=== PATIENT | female | born 1950 | race Caucasian/White ===

== ENCOUNTER 2017-07-24 00:41 | Emergency (ER) | payer OTHER ==
[2017-07-24 00:47] VITALS: BP 156/78; BMI 24.1
[2017-07-24 01:33] LABS: BILIRUBIN,URINE NEGATIVE (NEGATIVE); BLOOD/HEMOGLOBIN,URINE 5+ (NEGATIVE); GLUCOSE, URINE NEGATIVE (NEGATIVE); KETONES,URINE NEGATIVE (NEGATIVE); LEUKOCYTE ESTERASE ,URINE 3+ (NEGATIVE); NITRITES,URINE NEGATIVE (NEGATIVE); PH,URINE 6.5 (5.0 - 8.0); PROTEIN,URINE 3+ (NEGATIVE); UROBILINOGEN,URINE NORMAL (NORMAL)
--- NOTE | 2017-07-24 01:35 | DR.GENAD ---
HPI - PCP Primary Care Physician: shazia - HPI Comment HPI Comment: Dysuria - Complaint/Symptoms Chief Complaint:: c/o burning on urination; urinary frequency; dysuria; urgency ; hematuria. Onset 8pm tonight. 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 - Family History History of Family Medical Conditions: Yes Family Medical History: Diabetes Mellitus, [place], Coronary Artery Disease - Social History Does patient currently use any type of tobacco product: No Have you used tobacco products in the last 12 months: No Type of Tobacco Use: None Alcohol Use: None Do you use any recreational Drugs:: No Lives With: Family Lives Where: Home - infectious screening In the last 2 months have you had wt loss of >10#?: NO Have you had fever, night sweats or hemotysis?: No Have you traveled outside the country in the last 6 months?: No Isolation: Standard ROS - Review of Systems Constitutional: No Symptoms Reported Eyes: No Symptoms Reported ENTM: No Symptoms Reported Respiratoy: No Symptoms Reported Cardiovascular: No Symptoms Reported Gastrointestinal/Abdominal: No Symptoms Reported Genitourinary: Dysuria, Frequency, Other (Urgency) Neurological: No Symptoms Reported Musculoskeletal: No Symptoms Reported Integumentary: No Symptoms Reported Hematologic/Lymphatic: No Symptoms Reported Endocrine: No Symptoms Reported Psychiatric: No Symptoms Reported All Other Systems: Reviewed and Negative PE - Vital Signs Vitals: Temperature 98.1 F Pulse Rate 80 Respiratory Rate 20 Blood Pressure [Right Arm] 141/66 Blood Pressure 156/78 O2 Sat by Pulse Oximetry 98 - General Limitations: No Limitations General Appearance: Alert, In No Apparent Distress - Head Head Exam: Normal Inspection - Eyes Eye exam: Normal Appearance - ENT ENT Exam: Normal Exam External Ear Exam: Normal External Inspection TM/Canal Exam: Bilateral Normal Nose Exam: Normal Nose Exam Mouth Exam: Normal Inspection Throat Exam: Normal Inspection - Neck Neck Exam: Normal Inspection - Chest Chest Inspection: Normal Inspection - Respiratory Respiratory Exam: Normal Lung Sounds Bilat Respiratory Exam: Bilateral Clear to Auscultation - Cardiovascular Cardiovascular Exam: Regular Rate, Normal Rhythm - Abdominal Exam Abdominal Exam: Normal Inspection, Normal Bowel Sounds, Soft - Extremities Extremities Exam: Normal Inspection - Back Back Exam: Normal Inspection - Neurologic Neurological Exam: Alert, Oriented X3, CN II-XII Intact - Psychiatric Psychiatric Exam: Normal Affect, Normal Mood - Skin Skin Exam: Warm, Dry, Intact, Normal Color Course - Reevaluation 1st: Unchanged - Education/Counseling Education/Counseling: Patient, Family Educated On: Treatment, Diagnosis, Needs for Follow Up ROR - Labs Reviewed Laboratory: Specimen Type Clean catch urine 07/24/17 01:21 Urine Color Yellow (YELLOW) 07/24/17 01:21 Urine Appearance Hazy (CLEAR) 07/24/17 01:21 Urine pH 6.5 (5.0 - 8.0) 07/24/17 01:21 Ur Specific Aurora 1.010 (1.000-1.030) 07/24/17 01:21 Urine Protein 3+ (NEGATIVE) 07/24/17 01:21 Urine Glucose (UA) Negative (NEGATIVE) 07/24/17 01:21 Urine Ketones Negative (NEGATIVE) 07/24/17 01:21 Urine Occult Blood 5+ (NEGATIVE) 07/24/17 01:21 Urine Nitrite Negative (NEGATIVE) 07/24/17 01:21 Urine Bilirubin Negative (NEGATIVE) 07/24/17 01:21 Urine Urobilinogen Normal (NORMAL) 07/24/17 01:21 Ur Leukocyte Esterase 3+ (NEGATIVE) 07/24/17 01:21 Urine RBC 60-80 /HPF (NEGATIVE) 07/24/17 01:21 Urine WBC 20-30 /HPF (NEGATIVE) 07/24/17 01:21 Ur Squamous Epith Cells Few /HPF (NEGATIVE) 07/24/17 01:21 Urine Bacteria 1+ /HPF (NEGATIVE) 07/24/17 01:21 Ur Culture Indicated? Yes/culture set up 07/24/17 01:21 - Diagnosis Discharge Problem: Lower urinary tract infection - Discharge Plan Disposition: 01 HOME, SELF-CARE Condition: Stable - Follow ups/Referrals Follow ups/Referrals: Nate Muñiz [Primary Care Provider] - 3 days - Instructions
[2017-07-24 01:40] LABS: APPEARANCE,URINE HAZY (CLEAR); COLOR,URINE YELLOW (YELLOW); RBC,URINE 60-80 /HPF (NEGATIVE)
[2017-07-24 01:41] LABS: BACTERIA,URINE 1+ /HPF (NEGATIVE); SQUAMOUS EPITHELIAL CELL,UR FEW /HPF (NEGATIVE)
[2017-07-24] MEDS ORDERED: PYRIDIUM PO ONE (01:53)
[2017-07-24] MEDS ORDERED: LEVAQUIN TAB 500 MG PO ONE (01:55)
[2017-07-24] MEDS ORDERED: PYRIDIUM PO SCH (02:00)
== END 2017-07-24 02:38 | disposition home or self-care (01) ==
LOC: ER 00:41
DX: N39.0 Urinary tract infection, site not specified (principal)
CPT/HCPCS: 81001; 87086; 99282

== ENCOUNTER 2022-02-09 08:47 | Inpatient (IN) ==
[2022-02-09 08:57] VITALS: BMI 22.4
--- NOTE | 2022-02-09 09:27 | DR.HTN ---
HPI Time Seen Time Seen by Provider: 02/09/22 09:26 Primary Care Physician Primary Care Physician: PINKY HPI Comment HPI Comment: PATIENT IS 71YR OLD FEMALE WITH HISTORY OF HYPERTENSION AND DYSLIPIDEMIA IN ER WITH ELEVATED BP AND HEADACHE. SHE WENT FOR ECHOCARDIOGRAM TODAY AND BP WAS NOTED TO BE ELEVATED AND CAME TO ER. RECENTLY DECREASE MEDICATION FOR BP. SHE IS NAUSEATED AND FELT NAUSEA SINCE LAST WEEK. NO DIZZINESSOR, BLURRED VISSION OR DYSURIA OR TRAUMA. HACING SUBSTERNAL CHEST PAIN, MILD ACHING. HEADACHE IS THROBBING, DIFFUSE AND CURRENTLY 5/10. IT IS ASSOCIATED WITH NAUSEA AND TYLENOL IS NOT HELPING. SAW PCP ONE WEEK AGO FOR SAME. AT THAT TIME MEDICATION WAS DECREASE PER PATIENT. Complaints Chief Complaint Doctors Comments: ELEVATED BP AND HEADACHE. HIGH BP NOTED WHILE PATIENT WAS IN ECHO LAB. Chief Complaint:: PT STATES HER BLOOD PRESSURE IS HIGH TODAY. HAD ECHO DONE THIS MORNING AND BP WAS HIGH IN RADIOLOGY DEPT. CAME TO ER. PT STATES SHE IS ALSO NAUSEATED "ALL WEEK LAST WEEK", ALSO C/O HEADACHE Self Treatment fo Chief Complaint: SAW DR. VANCE LAST FOR C/O N/HTN, STATES SHE WAS TOLD TO HALF HER BP MED D/T PERIODS OF BP BEING TOO LOW. TYLENOL NOT EFFECTIVE FOR RELIEF OF HEADACHE. COVID-19 Coronavirus risk:travel/contact w/high risk person: No Has patient experienced Coronavirus symptoms: No Reviewed Nurses Notes Reviewed: Yes Source History Provided: Patient Mode of Arrival Mode of Arrival: Ambulatory Timing Onset of Chief Complaint: 02/09/22 Severity Severity: Moderate Context Circumstances: Spontaneous Onset History of: Hypertension Treatment of HTN Prior to Arrival: Taking meds as prescribed Associated Signs and Symptoms HTN Associated Signs and Symptoms: Headache and N/V Other History Other History: HTN, DYSLIPIDEMIA. 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 Family History History of Family Medical Conditions: Yes Family Medical History: Diabetes Mellitus, [place] and Coronary Artery Disease Social History Does any household member use tobacco: No Alcohol Use: None Do you use any recreational Drugs:: No Lives With: Alone Lives Where: Home Travel Risk Coronavirus risk:travel/contact w/high risk person: No Has patient experienced Coronavirus symptoms: No Infectious screening In the last 2 months have you had wt loss of >10#?: NO Have you had fever, night sweats or hemotysis?: No Have you traveled outside the country in the last 6 months?: No Isolation: Standard ROS Review of Systems Constitutional: No Symptoms Reported and See HPI; negative Fever, Weakness and Fatigue Eyes: No Symptoms Reported and See HPI; negative Blurred Vision ENTM: No Symptoms Reported and See HPI; negative Nose Discharge and Nose Congestion Respiratoy: No Symptoms Reported and See HPI; negative Moist Cough, Short of Breath and Wheezing Cardiovascular: See HPI and Chest Pain Gastrointestinal/Abdominal: See HPI, Nausea and Vomiting; negative Abdominal Pa in and Diarrhea Genitourinary: No Symptoms Reported and See HPI; negative Dysuria Neurological: See HPI and Headache; negative Weakness and Dizziness Musculoskeletal: No Symptoms Reported and See HPI; negative Muscle Pain Integumentary: No Symptoms Reported and See HPI; negative Rash and Juandice Hematologic/Lymphatic: See HPI and Easy Bruising; negative Swollen Glands Endocrine: No Symptoms Reported and See HPI; negative Increased Thirst and Increased Urine Psychiatric: No Symptoms Reported and See HPI All Other Systems: Reviewed and Negative PE Vital Signs Vitals: Temperature 97.8 F Pulse Rate 73 Respiratory Rate 15 Blood Pressure [Right Arm] 150/70 Blood Pressure 158/76 O2 Sat by Pulse Oximetry 98 General Limitations: No Limitations General Appearance: Alert and In No Apparent Distress Head Head Exam: Normal Inspection and Atraumatic Eyes Eye exam: Normal Appearance and PERRL; negative Scleral Icterus and Conjunctival Injection Pupils: Regular, Round: Bilateral and Reactive: Bilateral Sclera/Conjunctival: Normal Inspection: Bilateral ENT ENT Exam: Normal Exam, Normal Oropharynx, Normal External Ear Exam and TM's Normal Bilaterally Neck Neck Exam: Normal Inspection and Trachea Midline; negative Tenderness Chest Chest Inspection: Normal Inspection and Symmetric Chest Wall Rise; negative Tenderness Respiratory Respiratory Exam: Normal Lung Sounds Bilat; negative Accessory Muscle Use, Chest Wall Tenderness and Respiratory Distress Respiratory Exam: Bilateral: Clear to Auscultation Cardiovascular Cardiovascular Exam: Regular Rate, Normal Rhythm and Normal Heart Sounds; negative Systolic Murmur and Diastolic Murmur Abdominal Exam Abdominal Exam: Normal Inspection, Normal Bowel Sounds and Soft; negative Tenderness Extremities Extremities Exam: Normal Inspection and Normal Capillary Refill; negative Tenderness Back Back Exam: Normal Inspection; negative (R) CVA Tenderness and (L) CVA Tenderness Neurologic Neurological Exam: Alert and Oriented X3; negative Motor Sensory Deficit Patient Oriented To: Person, Place and Time Speech: Fluid Speech Cranial Nerve Exam: EOM Function (II, III, IV, ): Normal, Facial Sensation (V): Normal, Facial Palsy (VII): Normal, Gag reflex (XI): Normal and Tongue Deviation: Normal Motor Strength - LUE: 5/5 Motor Strength - RUE: 5/5 Motor Strength - LLE: 5/5 Motor Strength - RLE: 5/5 Upper Motor Neuron Exam: Babinski Sign: Normal Psychiatric Psychiatric Exam: Normal Affect and Normal Mood Skin Skin Exam: Warm, Dry, Intact and Normal Color MDM Additional Information Obtained Additional Information Obtained From: Old Records Differential Diagnosis Differential Diagnosis: Hyertension, essential and Hypertensive emergency Differential Diagnosis Comment: HEADACHE. COURSE Treatment Treatment: SEE ORDERS DONE WHILE PATIENT WWAS IN ER. Consultation Consultation Comments: DISCUSSED PATIENT WITH DR. VANCE. HE WILL BE ADMITTED TO HOSPITAL. Education/Counseling Education/Counseling: Patient Educated On: Diagnosis ROR Labs Reviewed Laboratory Results Reviewed?: Yes Result Diagrams: 02/16/22 04:10 02/16/22 04:10 Laboratory: WBC 12.6 X10^3/uL (3.6-10.0) H 02/09/22 09:46 RBC 4.54 X10^6/uL (3.5-5.4) 02/09/22 09:46 Hgb 12.0 g/dL (12.0-16.0) 02/09/22 09:46 Hct 34.8 % (36.0-47.0) L 02/09/22 09:46 MCV 76.6 fL (80.0-100.0) L 02/09/22 09:46 MCH 26.4 pg (27.0-34.0) L 02/09/22 09:46 MCHC 34.5 g/dL (33.0-35.0) 02/09/22 09:46 RDW 14.3 % (11.6-16.5) 02/09/22 09:46 Plt Count 285 X10^3/uL (150.0-450.0) 02/09/22 09:46 MPV 7.1 fL (7.4-11.0) L 02/09/22 09:46 Neut % (Auto) 87.1 % (42.0-75.0) H 02/09/22 09:46 Lymph % (Auto) 5.8 % (21.0-51.0) L 02/09/22 09:46 Robeson % (Auto) 6.7 % (0.0-13.0) 02/09/22 09:46 Eos % (Auto) 0.2 % (0.9-2.9) L 02/09/22 09:46 Baso % (Auto) 0.2 % (0.2-1.0) 02/09/22 09:46 Neut # (Auto) 11.0 x10^3/uL (2.2-4.8) H 02/09/22 09:46 Lymph # (Auto) 0.7 X10^3/uL (1.3-2.9) L 02/09/22 09:46 Robeson # (Auto) 0.8 x10^3/uL (0.3-0.8) 02/09/22 09:46 Eos # (Auto) 0.0 x10^3/uL (0.0-0.2) 02/09/22 09:46 Baso # (Auto) 0.0 X10^3/uL (0.0-0.1) 02/09/22 09:46 Absolute Nucleated RBC 0.1 /100WBC 02/09/22 09:46 Sodium 114 mmol/L (136-145) L* 02/09/22 09:46 Corrected Sodium 114 mmol/L (136-145) L 02/09/22 09:46 Potassium 4.4 mmol/L (3.5-5.1) 02/09/22 09:46 Chloride 82 mmol/L (98-107) L 02/09/22 09:46 Carbon Dioxide 23.8 mmol/L (21-32) 02/09/22 09:46 BUN 6 mg/dL (7-18) L 02/09/22 09:46 Creatinine 0.86 mg/dL (0.55-1.02) 02/09/22 09:46 Est GFR (MDRD) Af Amer > 60 (>60) 02/09/22 09:46 Est GFR (MDRD) Non-Af > 60 (>60) 02/09/22 09:46 Glucose 115 mg/dL (65-99) H 02/09/22 09:46 Calcium 8.8 mg/dL (8.5-10.1) 02/09/22 09:46 Corrected Calcium 9.4 mg/dL (8.5-10.1) 02/09/22 09:46 Total Bilirubin 0.70 mg/dL (0.2-1.0) 02/09/22 09:46 AST 13 Units/L (15-37) L 02/09/22 09:46 ALT 17 Units/L (12-78) 02/09/22 09:46 Alkaline Phosphatase 109 Units/L (46-116) 02/09/22 09:46 Creatine Kinase 48 Units/L (26-192) 02/09/22 09:46 CK-MB (CK-2) 1.1 ng/mL (0-4.0) 02/09/22 09:46 CK/CKMB % Calc 2.3 % (<4) 02/09/22 09:46 Troponin I High Sens 9.3 ng/L (4.0-60.0) 02/09/22 09:46 Total Protein 6.2 g/dL (6.4-8.2) L 02/09/22 09:46 Albumin 3.2 g/dL (3.4-5.0) L 02/09/22 09:46 Globulin 3.0 g/dL (2.5-4.5) 02/09/22 09:46 Albumin/Globulin Ratio 1.1 Ratio (1.1-2.1) 02/09/22 09:46 SARS-CoV-2 (PCR) Negative (NEGATIVE) 02/09/22 09:46 Influenza Type A (PCR) Negative (NEGATIVE) 02/09/22 09:46 Influenza Type B (PCR) Negative (NEGATIVE) 02/09/22 09:46 RSV (PCR) Negative (NEGATIVE) 02/09/22 09:46 Opioid Opioid Risk Tool Age (Ciro box if 16-45): No History of Preadolescent Sexual Abuse: No Total: 0 Total Score Risk Category: Low Risk Copyright: Mauricio TORRES predicting aberrant behaviors Diagnosis Discharge Problem: Hyponatremia, Generalized weakness Hypertension Qualifiers: Hypertension type: primary hypertension Qualified Code(s): I10 - Essential (primary) hypertension Headache Qualifiers: Headache type: unspecified Headache chronicity pattern: acute headache Intractability: intractable Qualified Code(s): R51.9 - Headache, unspecified Chest pain Qualifiers: Chest pain type: intercostal pain Qualified Code(s): R07.82 - Intercostal pain Instructions Instructions: Migraine Headache, Xnat-yl-Aigj How to Take Your Blood Pressure, Mbqm-sm-Wykj Urinary Tract Infection, Adult, Pgsn-my-Vcxa Hypertension, Adult, Kruc-tk-Wily Hyponatremia, Pgij-ih-Ihbp Dizziness, Fgki-gi-Enhb Forms: Excuse From Work or School Precautions for COVID19 [facility] Social Distancing
[2022-02-09 09:56] LABS: BASOPHILS % (AUTO) 0.2 % (0.2-1.0); EOSINOPHILS % (AUTO) 0.2 % (0.9-2.9); HEMATOCRIT 34.8 % (36.0-47.0); LYMPHOCYTES # (AUTO) 0.7 X10^3/uL (1.3-2.9); LYMPHOCYTES % (AUTO) 5.8 % (21.0-51.0); MEAN CORPUSCULAR HEMOGLOBIN 26.4 pg (27.0-34.0); MEAN CORPUSCULAR HGB CONC 34.5 g/dL (33.0-35.0); MEAN CORPUSCULAR VOLUME 76.6 fL (80.0-100.0); MEAN PLATELET VOLUME 7.1 fL (7.4-11.0); MONOCYTES # (AUTO) 0.8 x10^3/uL (0.3-0.8); MONOCYTES % (AUTO) 6.7 % (0.0-13.0); NEUTROPHILS % (AUTO) 87.1 % (42.0-75.0); RED BLOOD COUNT 4.54 X10^6/uL (3.5-5.4); RED CELL DISTRIBUTION WIDTH 14.3 % (11.6-16.5); WHITE BLOOD COUNT 12.6 X10^3/uL (3.6-10.0)
[2022-02-09 10:20] LABS: ALANINE AMINOTRANSFERASE 17 Units/L (12-78); ALBUMIN 3.2 g/dL (3.4-5.0); ALKALINE PHOSPHATASE 109 Units/L (46-116); ASPARTATE AMINO TRANSFERASE 13 Units/L (15-37); BLOOD UREA NITROGEN 6 mg/dL (7-18); CALCIUM 8.8 mg/dL (8.5-10.1); CARBON DIOXIDE 23.8 mmol/L (21-32); CHLORIDE 82 mmol/L (98-107); CKMB % 2.3 % (<4); COR CA(FOR HYPOALB) 9.4 mg/dL (8.5-10.1); COR NA(FOR HYPERGLY) 114 mmol/L (136-145); CREATINE KINASE 48 Units/L (26-192); CREATINE KINASE MB 1.1 ng/mL (0-4.0); CREATININE 0.86 mg/dL (0.55-1.02); TOTAL PROTEIN 6.2 g/dL (6.4-8.2); eGFR NON BLACK RACES > 60 (>60)
[2022-02-09 10:22] LABS: SODIUM 114 mmol/L (136-145)
[2022-02-09] MEDS ORDERED: NS 1,000 ML IV 1,000 ML ONE (10:27)
[2022-02-09] MEDS ORDERED: NS 1,000 ML IV 1,000 ML IV ONE (10:31)
--- NOTE | 2022-02-09 10:36 | RAD ---
HISTORYChest painSTUDYChest AP portableCOMPARISONNoneFINDINGSPatient is rotated slightly to the right. Heart size is normal. Jloie are normal. Lung ayoub are clear. No pleural effusion or pneumothorax identified. Bony thorax is unremarkable.IMPRESSIONNo significant abnormality identifiedElectronically signed by: COLEMAN LANTIGUA (February 09, 2022 10:34:41)
[2022-02-09] MEDS: NS 1,000 ML IV 1,000 ML IV SCH (12:53)
[2022-02-09 17:25] LABS: CREATINE KINASE MB 1.2 ng/mL (0-4.0)
[2022-02-09 23:00] LABS: CKMB % 2.2 % (<4)
[2022-02-10] MEDS: TYLENOL 325 MG TAB PO PRN ×2 (01:12→20:49)
[2022-02-10] MEDS: NS 1,000 ML IV 1,000 ML IV SCH ×4 (01:13→17:14)
[2022-02-10 04:19] LABS: BASOPHILS % (AUTO) 0.4 % (0.2-1.0); EOSINOPHILS % (AUTO) 0.2 % (0.9-2.9); HEMATOCRIT 33.2 % (36.0-47.0); HEMOGLOBIN 11.5 g/dL (12.0-16.0); LYMPHOCYTES # (AUTO) 1.1 X10^3/uL (1.3-2.9); LYMPHOCYTES % (AUTO) 14.5 % (21.0-51.0); MEAN CORPUSCULAR HEMOGLOBIN 26.4 pg (27.0-34.0); MEAN CORPUSCULAR HGB CONC 34.7 g/dL (33.0-35.0); MEAN PLATELET VOLUME 7.2 fL (7.4-11.0); MONOCYTES # (AUTO) 0.8 x10^3/uL (0.3-0.8); MONOCYTES % (AUTO) 9.9 % (0.0-13.0); NEUTROPHILS # (AUTO) 5.9 x10^3/uL (2.2-4.8); RED BLOOD COUNT 4.37 X10^6/uL (3.5-5.4); RED CELL DISTRIBUTION WIDTH 14.3 % (11.6-16.5); WHITE BLOOD COUNT 7.9 X10^3/uL (3.6-10.0)
[2022-02-10 04:23] LABS: ALANINE AMINOTRANSFERASE 14 Units/L (12-78); ALBUMIN 2.7 g/dL (3.4-5.0); ALKALINE PHOSPHATASE 94 Units/L (46-116); ASPARTATE AMINO TRANSFERASE 10 Units/L (15-37); BLOOD UREA NITROGEN 8 mg/dL (7-18); CALCIUM 8.6 mg/dL (8.5-10.1); CARBON DIOXIDE 25.6 mmol/L (21-32); CHLORIDE 96 mmol/L (98-107); COR CA(FOR HYPOALB) 9.6 mg/dL (8.5-10.1); CREATININE 0.87 mg/dL (0.55-1.02); MAGNESIUM 1.8 mg/dL (1.7-2.9); SODIUM 126 mmol/L (136-145); TOTAL PROTEIN 5.5 g/dL (6.4-8.2); eGFR NON BLACK RACES > 60 (>60)
[2022-02-10] MEDS ORDERED: ALLEGRA ONE (10:14)
[2022-02-10] MEDS: ALLEGRA PO SCH (10:20)
[2022-02-10] MEDS: CALAN SR 120 MG PO SCH (10:29)
[2022-02-10] MEDS: ASPIRIN EC 81 MG PO SCH (10:29)
[2022-02-10] MEDS: ZESTRIL TAB 10 MG PO SCH (10:30)
[2022-02-10] MEDS: FLONASE NASAL SPRAY ENOSTRIL SCH (10:30)
[2022-02-10] MEDS: PROTONIX TAB 40 MG PO SCH (10:30)
--- NOTE | 2022-02-10 12:55 | DR.H&P ---
H&P - History & Physical for Day of: H&P Date: 02/09/22 - Chief Complaint Chief Complaint: ELEVATED BLOOD PRESSURE, HEADACHE, CHEST PAIN, NAUSEA - History of Present Illness History of Present Illness: IS A 71 YEAR OLD PATIENT OF OURS. SHE PRESENTED TO THE ER WITH COMPLAINTS OF ELEVATED BLOOD PRESSURE, HEADACHE, INTERMITTENT CHEST PAIN, AND NAUSEA. LAST WEEK, HER BLOOD PRESSURE HAD BEEN RUNNING LOW. WE INSTRUCTED HER TO ONLY TAKE HALF OF HER BLOOD PRESSURE MEDICATION AT THAT TIME. HER PMH INCLUDES HTN AND DYSLIPIDEMIA. ON ARRIVAL TO THE ER, HER VITALS WERE 97.8-72-18-100%-188/77. LABS WERE OBTAINED. WBC 12.6, RBC 4.54, HGB 12.0, HCT 34.8, SODIUM 114, POTASSIUM 4.4, CHLORIDE 82, BUN 6, CREATININE 0.86, GLUCOSE 115, CALCIUM 8.8, TOTAL BILI 0.70, AST 13, ALT 17, ALK PHOS 109, TOTAL PROTEIN 6.2, ALBUMIN 3.2. CARDIAC ENZYMES WERE WITHIN NORMAL LIMITS. COVID, INFLUENZA, AND RSV NEGATIVE. A CHEST XRAY WAS OBTAINED AND REVEALED: NO SIGNIFICANT ABNORMALITY IDENTIFIED. EKG REVEALED: NSR WITH HR 72. IN THE ER, SHE WAS GIVEN A NORMAL SALINE BOLUS. SHE WAS ADMITTED TO THE HOSPITAL INPATIENT STATUS FOR FURTHER EVALUATION AND TREATMENT OF ACUTE HYPONATREMIA, CHEST PAIN, HYPERTENSION. SHE WAS STARTED ON NORMAL SALINE AT 75 ML/HR, PROTONIX 40MG PO DAILY, VERAPAMIL 120MG PO DAILY, LISINOPRIL 10MG PO DAILY, NEURONTIN 200MG PO HS, FLONASE 1 SPRAY EACH NOSTRIL DAILY, LUL 180MG PO DAILY, LIPITOR 40MG PO HS, ECOTRIN 81MG PO DAILY, AND TYLENOL 650MG PO Q6H PRN. OTHERWISE, WE WILL OBTAIN SERIAL CARDIAC ENZYMES AND EKGS. WE PLAN TO FOLLOW-UP WITH AM LABS AND CONTINUE TO MONITOR. WITH MORNING LABS, WE WILL OBTAIN A URINE SODIUM, SERUM OSMOLALITY, URINE OSMOLALITY, AND CHEST CT WITH CONTRAST TO RULE OUT LUNG CANCER OR OTHER CAUSES OF THE SEVERE HYPONATREMIA. TIME SPENT ON CLINICAL ASSESSMENT, REVIEWING LABS AND IMAGING, DECISION MAKING, AND DOCUMENTATION GREATER THAN 75 MINUTES. 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 Additional Surgical History: Ovarian Cyst Removed - Family History Family Medical History: Diabetes Mellitus, [place], Coronary Artery Disease - Social History Does patient currently use any type of tobacco product: No Have you used tobacco products in the last 12 months: No Type of Tobacco Use: None Does any household member use tobacco: No Alcohol Use: None Drug Use: None - Medications Home Medications: No Known Drug Allergies Allergy (Verified 05/19/19 13:36) CONTINUE taking the following medications aspirin 81 mg PO DAILY 02/09/22 [History] atorvastatin 40 mg PO HS 02/09/22 [History] fexofenadine [Allergy Relief (fexofenadine)] 180 mg PO DAILY 02/09/22 [History] fluticasone propionate 1 spray INTRANASAL DAILY 02/09/22 [History] gabapentin 200 mg PO HS 02/09/22 [History] lisinopril 10 mg PO QAM 02/09/22 [History] ondansetron HCl 4 mg PO Q4H PRN 02/09/22 [History] - Review of Systems Constitutional: Weakness Eyes: No Symptoms Reported ENT: No Symptoms Reported Respiratory: No Symptoms Reported Cardiovascular: Chest Pain Gastrointestinal: Nausea Genitourinary: No Symptoms Reported Musculoskeletal: No Symptoms Reported Skin: No Symptoms Reported Neurological: Weakness, Other (HEADACHE ) - Physical Exam Vital Signs: Temperature 97.8 F Pulse Rate [Left Radial] 74 Pulse Rate 76 Respiratory Rate 20 Blood Pressure [Right Arm] 176/77 Blood Pressure 149/68 O2 Sat by Pulse Oximetry 98 Oriented: Normal Eyes: Normal Ear: Normal Nose: Normal Throat: Normal Respiratory: Clear Throughout Cardiovascular: Normal : Normal Auscultation: Bowel Sounds: Normal Palpation: Normal Tenderness: Normal Skin: Normal Musculoskeletal: Normal Psychiatric: Normal Mood Description: Calm Affect: Normal Speech Pattern: Clear - Assessment/Plan (1) Hyponatremia Status: Acute Plan: ADMIT, NORMAL SALINE AT 75 ML/HR, PROTONIX 40MG PO DAILY, VERAPAMIL 120MG PO DAILY, LISINOPRIL 10MG PO DAILY, NEURONTIN 200MG PO HS, FLONASE 1 SPRAY EACH NOSTRIL DAILY, LUL 180MG PO DAILY, LIPITOR 40MG PO HS, ECOTRIN 81MG PO DAILY, AND TYLENOL 650MG PO Q6H PRN. SERIAL CARDIAC ENZYMES AND EKGS (2) Chest pain, rule out acute myocardial infarction Status: Acute (3) Hypertension Qualifiers: Hypertension type: primary hypertension Qualified Code(s): I10 - Essential (primary) hypertension Status: Chronic - Allergies Allergies/Adverse Reactions: Allergies Allergy/AdvReac Type Severity Reaction Status Date / Time No Known Drug Allergies Allergy Verified 05/19/19 13:36
--- NOTE | 2022-02-10 13:28 | CT ---
HISTORYCHEST PAINSTUDYCT chest with IV contrastCOMPARISONJoint Township District [facility] 02/09/2022TECHNIQUEMultiple axial images of the chest were obtained from the thoracic inlet to the upper abdomenwith the administration of IV contrast. Sagittal and coronal reformations are performed. Dose reduction techniques including Automated Exposure Control (AEC) and adjustment of mA and kV were utilized.FINDINGSProbable mild dependent atelectasis in the lungs. No lung nodules are seen. The heart and thoracic aorta are normal in size. There is no evidence of aortic dissection. Mild fluid distention of the pericardial recesses. No mediastinal lymphadenopathy is seen.In the left hepatic lobe near the falciform ligament there is a 1.6 cm well-circumscribed hypodensity that is most likely a cyst. Probable 2nd cyst in the inferior tip of the right hepatic lobe measures 7 mm. Recommend confirmation with ultrasound given the size of the left hepatic lobe lesion. Probable small parapelvic renal cysts are present.There is likely recent central and anterior compression fracture of T11. There is 25 percent loss of height. The posterior cortex is slightly displaced into the central canal without significant stenosis. This is probably osteoporotic compression fracture. Likely hemangioma are seen in the T10 and T8 vertebral bodies. Probable bone island is seen in the T7 vertebral body.IMPRESSIONRecent 25 percent compression fracture of T11 is most likely a benign osteoporotic compression fracture.No suggestion of lung cancer is seen.Two probable cysts are seen in the liver. Recommend confirmation with ultrasound.Electronically signed by: Radhames Huber (February 10, 2022 13:27:17)
[2022-02-10] MEDS: NEURONTIN CAP 100 MG PO SCH (20:49)
[2022-02-10] MEDS: LIPITOR TAB 40 MG PO SCH (20:49)
[2022-02-11 04:43] LABS: BASOPHILS # (AUTO) 0.1 X10^3/uL (0.0-0.1); EOSINOPHILS % (AUTO) 0.5 % (0.9-2.9); HEMATOCRIT 33.4 % (36.0-47.0); HEMOGLOBIN 11.3 g/dL (12.0-16.0); LYMPHOCYTES # (AUTO) 1.5 X10^3/uL (1.3-2.9); LYMPHOCYTES % (AUTO) 18.5 % (21.0-51.0); MEAN CORPUSCULAR HEMOGLOBIN 26.4 pg (27.0-34.0); MEAN CORPUSCULAR HGB CONC 33.9 g/dL (33.0-35.0); MEAN CORPUSCULAR VOLUME 77.9 fL (80.0-100.0); MEAN PLATELET VOLUME 7.2 fL (7.4-11.0); MONOCYTES # (AUTO) 0.6 x10^3/uL (0.3-0.8); MONOCYTES % (AUTO) 7.5 % (0.0-13.0); NEUTROPHILS # (AUTO) 5.9 x10^3/uL (2.2-4.8); NEUTROPHILS % (AUTO) 72.5 % (42.0-75.0); RED BLOOD COUNT 4.29 X10^6/uL (3.5-5.4); RED CELL DISTRIBUTION WIDTH 14.3 % (11.6-16.5); WHITE BLOOD COUNT 8.1 X10^3/uL (3.6-10.0)
[2022-02-11 05:08] LABS: ALANINE AMINOTRANSFERASE 15 Units/L (12-78); ALBUMIN 2.6 g/dL (3.4-5.0); ALKALINE PHOSPHATASE 87 Units/L (46-116); ASPARTATE AMINO TRANSFERASE 12 Units/L (15-37); BLOOD UREA NITROGEN 10 mg/dL (7-18); CALCIUM 8.8 mg/dL (8.5-10.1); CARBON DIOXIDE 24.6 mmol/L (21-32); CHLORIDE 99 mmol/L (98-107); COR CA(FOR HYPOALB) 9.9 mg/dL (8.5-10.1); CREATININE 0.76 mg/dL (0.55-1.02); SODIUM 129 mmol/L (136-145); TOTAL PROTEIN 5.5 g/dL (6.4-8.2); eGFR NON BLACK RACES > 60 (>60)
[2022-02-11] MEDS: NS 1,000 ML IV 1,000 ML IV SCH ×3 (05:46→22:28)
[2022-02-11] MEDS ORDERED: ALLEGRA ONE (07:07)
[2022-02-11] MEDS: ASPIRIN EC 81 MG PO SCH (08:10)
[2022-02-11] MEDS: ZESTRIL TAB 10 MG PO SCH (08:10)
[2022-02-11] MEDS: PROTONIX TAB 40 MG PO SCH (08:10)
[2022-02-11] MEDS: CALAN SR 120 MG PO SCH (08:10)
[2022-02-11] MEDS: ALLEGRA PO SCH (08:11)
[2022-02-11] MEDS: FLONASE NASAL SPRAY ENOSTRIL SCH (08:12)
--- NOTE | 2022-02-11 11:13 | PCM.PROG ---
Progress Note - Progress Note for Day of Date of Exam: 02/10/22 - Subjective Subjective: IS CURRENTLY INPATIENT STATUS FOR TREATMENT OF HYPONATREMIA, CHEST PAIN RULE OUT ACUTE ND, AND HTN. TODAY, SHE IS ALERT AND ORIENTED, LYING IN BED ON MORNING ROUNDS. SHE DENIES CHEST PAIN, HEADACHE, OR NAUSEA THIS MORNING. SHE DOES ADMIT TO STILL HAVING SOME GENERALIZED WEAKNESS. ON EX AMINATION, HEART IS REGULAR IN RATE AND RHYTHM. BILATERAL LUNGS CLEAR TO AUSCULATION. ABDOMEN IS ROUND, SOFT, AND NON-TENDER WITH NORMAL BOWEL SOUNDS NOTED IN ALL QUADRANTS. HER VITALS THIS MORNING ARE: 97.4-67-20-98%-180/72. LABS WERE OBTAINED. ABNORMAL LAB VALUES INCLUDE THE FOLLOWING: HGB 11.5, HCT 33.2, SODIUM 126, CHLORIDE 96, AST 10, TOTAL PROTEIN 5.5, ALBUMIN 2.7, CALCULATED OSMOLALITY 270, RANDOM SODIUM 60. WE OBTAINED A CHEST CT WITH CONTRAST TODAY TO RULE OUT POSSIBLE LUNG CANCER A CAUSE OF HYPONATREMIA. IT REVEALED: Recent 25 percent compression fracture of T11 is most likely a benign osteoporotic compression fracture. No suggestion of lung cancer is seen. Two probable cysts are seen in the liver. Recommend confirmation with ultrasound. SHE IS CURRENTLY RECEIVING NORMAL SALINE AT 75 ML/HR, PROTONIX 40MG PO DAILY, VERAPAMIL 120MG PO DAILY, LISINOPRIL 10MG PO DAILY, NEURONTIN 200MG PO HS, FLONASE 1 SPRAY EACH NOSTRIL DAILY, LUL 180MG PO DAILY, LIPITOR 40MG PO HS, ECOTRIN 81MG PO DAILY, AND TYLENOL 650MG PO Q6H PRN. WE WILL ORDER A LIVER ULTRASOUND PER CT RECOMMENDATIONS. WE WILL ADD A CEA TO TOMORROWS LABS. OTHERWISE, WE PLAN TO FOLLOW-UP WITH AM LABS AND CONTINUE TO MONITOR. TIME SPENT ON CLINICAL ASSESSMENT, REVIEWING LABS AND IMAGING, DECISION MAKING, AND DOCUMENTATION GREATER THAN 45 MINUTES. - Past Medical Family Social History Past Med/Fam/Surg Hx: No changes since H&P Allergies: Allergies No Known Drug Allergies Allergy (Verified 05/19/19 13:36) - Review of Systems ROS: No change since H&P - Vital Signs and I&O's Vital Signs: Temperature 98.2 F Pulse Rate [Left Radial] 60 Pulse Rate 76 Respiratory Rate 18 Blood Pressure [Right Arm] 129/61 Blood Pressure 149/68 O2 Sat by Pulse Oximetry 100 Intake and Output: Intake & Output 02/08/22 02/09/22 02/10/22 02/11/22 11:59 11:59 11:59 11:59 Intake Total 1846 3259 / 3259 Balance 1846 3259 / 3259 - Physical Exam Oriented: Normal Eyes: Normal Ear: Normal Nose: Normal Throat: Normal Respiratory: Normal Cardiovascular: Normal : Normal Auscultation: Bowel Sounds: Normal Palpation: Normal Tenderness: Normal Skin: Normal Musculoskeletal: Normal Psychiatric: Normal Mood Description: Calm Affect: Normal Speech Pattern: Clear, Appropriate - Laboratory and Diagnostics Result Diagrams: 02/11/22 04:00 02/11/22 04:00 Labs: Laboratory WBC 8.1 X10^3/uL (3.6-10.0) 02/11/22 04:00 RBC 4.29 X10^6/uL (3.5-5.4) 02/11/22 04:00 Hgb 11.3 g/dL (12.0-16.0) L 02/11/22 04:00 Hct 33.4 % (36.0-47.0) L 02/11/22 04:00 MCV 77.9 fL (80.0-100.0) L 02/11/22 04:00 MCH 26.4 pg (27.0-34.0) L 02/11/22 04:00 MCHC 33.9 g/dL (33.0-35.0) 02/11/22 04:00 RDW 14.3 % (11.6-16.5) 02/11/22 04:00 Plt Count 289 X10^3/uL (150.0-450.0) 02/11/22 04:00 MPV 7.2 fL (7.4-11.0) L 02/11/22 04:00 Neut % (Auto) 72.5 % (42.0-75.0) 02/11/22 04:00 Lymph % (Auto) 18.5 % (21.0-51.0) L 02/11/22 04:00 [place] % (Auto) 7.5 % (0.0-13.0) 02/11/22 04:00 Eos % (Auto) 0.5 % (0.9-2.9) L 02/11/22 04:00 Baso % (Auto) 1.0 % (0.2-1.0) 02/11/22 04:00 Neut # (Auto) 5.9 x10^3/uL (2.2-4.8) H 02/11/22 04:00 Lymph # (Auto) 1.5 X10^3/uL (1.3-2.9) 02/11/22 04:00 [place] # (Auto) 0.6 x10^3/uL (0.3-0.8) 02/11/22 04:00 Eos # (Auto) 0.0 x10^3/uL (0.0-0.2) 02/11/22 04:00 Baso # (Auto) 0.1 X10^3/uL (0.0-0.1) 02/11/22 04:00 Absolute Nucleated RBC 0.0 /100WBC 02/11/22 04:00 Sodium 129 mmol/L (136-145) L 02/11/22 04:00 Corrected Sodium TNP 02/11/22 04:00 Potassium 4.5 mmol/L (3.5-5.1) 02/11/22 04:00 Chloride 99 mmol/L (98-107) 02/11/22 04:00 Carbon Dioxide 24.6 mmol/L (21-32) 02/11/22 04:00 BUN 10 mg/dL (7-18) 02/11/22 04:00 Creatinine 0.76 mg/dL (0.55-1.02) 02/11/22 04:00 Est GFR (MDRD) Af Amer > 60 (>60) 02/11/22 04:00 Est GFR (MDRD) Non-Af > 60 (>60) 02/11/22 04:00 Glucose 85 mg/dL (65-99) 02/11/22 04:00 Calculated Osmolality 270 mOsm/kg (285-295) L 02/10/22 03:21 Calcium 8.8 mg/dL (8.5-10.1) 02/11/22 04:00 Corrected Calcium 9.9 mg/dL (8.5-10.1) 02/11/22 04:00 Magnesium 1.8 mg/dL (1.7-2.9) 02/10/22 03:21 Total Bilirubin 0.30 mg/dL (0.2-1.0) 02/10/22 03:21 AST 12 Units/L (15-37) L 02/11/22 04:00 ALT 15 Units/L (12-78) 02/11/22 04:00 Alkaline Phosphatase 87 Units/L (46-116) 02/11/22 04:00 Creatine Kinase 45 Units/L (26-192) 02/09/22 21:31 CK-MB (CK-2) 1.0 ng/mL (0-4.0) 02/09/22 21: CK/CKMB % Calc 2.2 % (<4) 02/09/22 21:31 Troponin I High Sens 6.7 ng/L (4.0-60.0) 02/09/22 21:31 Total Protein 5.5 g/dL (6.4-8.2) L 02/11/22 04:00 Albumin 2.6 g/dL (3.4-5.0) L 02/11/22 04:00 Globulin 2.9 g/dL (2.5-4.5) 02/11/22 04:00 Albumin/Globulin Ratio 0.9 Ratio (1.1-2.1) L 02/11/22 04:00 Ur Random Sodium 60 mmol/L (40-220) 02/10/22 11:30 SARS-CoV-2 (PCR) Negative (NEGATIVE) 02/09/22 09:46 Influenza Type A (PCR) Negative (NEGATIVE) 02/09/22 09:46 Influenza Type B (PCR) Negative (NEGATIVE) 02/09/22 09:46 RSV (PCR) Negative (NEGATIVE) 02/09/22 09:46 - Plan (1) Hyponatremia Status: Acute Plan: NORMAL SALINE AT 75 ML/HR, PROTONIX 40MG PO DAILY, VERAPAMIL 120MG PO DAILY, LISINOPRIL 10MG PO DAILY, NEURONTIN 200MG PO HS, FLONASE 1 SPRAY EACH NOSTRIL DAILY, LUL 180MG PO DAILY, LIPITOR 40MG PO HS, ECOTRIN 81MG PO DAILY, AND TYLENOL 650MG PO Q6H PRN. SERIAL CARDIAC ENZYMES AND EKGS (2) Chest pain, rule out acute myocardial infarction Status: Acute (3) Hypertension Status: Chronic Qualifiers: Hypertension type: primary hypertension Qualified Code(s): I10 - Essential (primary) hypertension
--- NOTE | 2022-02-11 11:22 | PCM.PROG ---
Progress Note - Progress Note for Day of Date of Exam: 02/11/22 - Subjective Subjective: IS CURRENTLY INPATIENT STATUS FOR TREATMENT OF HYPONATREMIA, CHEST PAIN RULE OUT ACUTE NC, AND HTN. TODAY, SHE IS ALERT AND ORIENTED, LYING IN BED ON MORNING ROUNDS. SHE DENIES CHEST PAIN, HEADACHE, OR NAUSEA THIS MORNING. SHE DOES ADMIT TO STILL HAVING SOME GENERALIZED WEAKNESS. SHE ALSO REPORTS MILD MIDDLE AND LOWER BACK PAIN. ON EXAMINATION, HEART IS REGULAR IN RATE AND RHYTHM. BILATERAL LUNGS CLEAR TO AUSCULATION. ABDOMEN IS ROUND, SOFT, AND NON-TENDER WITH NORMAL BOWEL SOUNDS NOTED IN ALL QUADRANTS. HER VITALS THIS MORNING ARE: 98.2-60-18-100%-129/61. LABS WERE OBTAINED. ABNORMAL LAB VALUES INCLUDE THE FOLLOWING: HGB 11.3, HCT 33.4, SODIUM 129, AST 12, TOTAL PROTEIN 5.5, ALBUMIN 2.6. WE OBTAINED A CHEST CT WITH CONTRAST YESTERDAY TO RULE OUT POSSIBLE LUNG CANCER A CAUSE OF HYPONATREMIA. IT REVEALED: Recent 25 percent compression fracture of T11 is most likely a benign osteoporotic compression fracture. No suggestion of lung cancer is seen. Two probable cysts are seen in the liver. Recommend confirmation with ultrasound. SHE IS CURRENTLY RECEIVING NORMAL SALINE AT 75 ML/HR, PROTONIX 40MG PO DAILY, VERAPAMIL 120MG PO DAILY, LISINOPRIL 10MG PO DAILY, NEURONTIN 200MG PO HS, FLONASE 1 SPRAY EACH NOSTRIL DAILY, LUL 180MG PO DAILY, LIPITOR 40MG PO HS, ECOTRIN 81MG PO DAILY, AND TYLENOL 650MG PO Q6H PRN. WE OBTAINED A LIVER ULTRASOUND PER CT RECOMMENDATIONS. RESULTS ARE PENDING. TODAY, WE WILL ADD ALBUMIN 25% IV DAILY. OTHERWISE, WE PLAN TO FOLLOW-UP WITH AM LABS AND CONTINUE TO MONITOR. TIME SPENT ON CLINICAL ASSESSMENT, REVIEWING LABS AND IMAGING, DECISION MAKING, AND DOCUMENTATION GREATER THAN 45 MINUTES. - Past Medical Family Social History Past Med/Fam/Surg Hx: No changes since H&P Allergies: Allergies No Known Drug Allergies Allergy (Verified 05/19/19 13:36) - Review of Systems ROS: No change since H&P - Vital Signs and I&O's Vital Signs: Temperature 98.2 F Pulse Rate [Left Radial] 60 Pulse Rate 76 Respiratory Rate 18 Blood Pressure [Right Arm] 129/61 Blood Pressure 149/68 O2 Sat by Pulse Oximetry 100 Intake and Output: Intake & Output 02/08/22 02/09/22 02/10/22 02/11/22 11:59 11:59 11:59 11:59 Intake Total 1846 3259 / 3259 Balance 1846 3259 / 3259 - Physical Exam Oriented: Normal Eyes: Normal Ear: Normal Nose: Normal Throat: Normal Respiratory: Normal Cardiovascular: Normal : Normal Auscultation: Bowel Sounds: Normal Palpation: Normal Tenderness: Normal Skin: Normal Musculoskeletal: Normal Psychiatric: Normal Mood Description: Calm Affect: Normal Speech Pattern: Clear, Appropriate - Laboratory and Diagnostics Result Diagrams: 02/11/22 04:00 02/11/22 04:00 Labs: Laboratory WBC 8.1 X10^3/uL (3.6-10.0) 02/11/22 04:00 RBC 4.29 X10^6/uL (3.5-5.4) 02/11/22 04:00 Hgb 11.3 g/dL (12.0-16.0) L 02/11/22 04:00 Hct 33.4 % (36.0-47.0) L 02/11/22 04:00 MCV 77.9 fL (80.0-100.0) L 02/11/22 04:00 MCH 26.4 pg (27.0-34.0) L 02/11/22 04:00 MCHC 33.9 g/dL (33.0-35.0) 02/11/22 04:00 RDW 14.3 % (11.6-16.5) 02/11/22 04:00 Plt Count 289 X10^3/uL (150.0-450.0) 02/11/22 04:00 MPV 7.2 fL (7.4-11.0) L 02/11/22 04:00 Neut % (Auto) 72.5 % (42.0-75.0) 02/11/22 04:00 Lymph % (Auto) 18.5 % (21.0-51.0) L 02/11/22 04:00 [place] % (Auto) 7.5 % (0.0-13.0) 02/11/22 04:00 Eos % (Auto) 0.5 % (0.9-2.9) L 02/11/22 04:00 Baso % (Auto) 1.0 % (0.2-1.0) 02/11/22 04:00 Neut # (Auto) 5.9 x10^3/uL (2.2-4.8) H 02/11/22 04:00 Lymph # (Auto) 1.5 X10^3/uL (1.3-2.9) 02/11/22 04:00 [place] # (Auto) 0.6 x10^3/uL (0.3-0.8) 02/11/22 04:00 Eos # (Auto) 0.0 x10^3/uL (0.0-0.2) 02/11/22 04:00 Baso # (Auto) 0.1 X10^3/uL (0.0-0.1) 02/11/22 04:00 Absolute Nucleated RBC 0.0 /100WBC 02/11/22 04:00 Sodium 129 mmol/L (136-145) L 02/11/22 04:00 Corrected Sodium TNP 02/11/22 04:00 Potassium 4.5 mmol/L (3.5-5.1) 02/11/22 04:00 Chloride 99 mmol/L (98-107) 02/11/22 04:00 Carbon Dioxide 24.6 mmol/L (21-32) 02/11/22 04:00 BUN 10 mg/dL (7-18) 02/11/22 04:00 Creatinine 0.76 mg/dL (0.55-1.02) 02/11/22 04:00 Est GFR (MDRD) Af Amer > 60 (>60) 02/11/22 04:00 Est GFR (MDRD) Non-Af > 60 (>60) 02/11/22 04:00 Glucose 85 mg/dL (65-99) 02/11/22 04:00 Calculated Osmolality 270 mOsm/kg (285-295) L 02/10/22 03:21 Calcium 8.8 mg/dL (8.5-10.1) 02/11/22 04:00 Corrected Calcium 9.9 mg/dL (8.5-10.1) 02/11/22 04:00 Magnesium 1.8 mg/dL (1.7-2.9) 02/10/22 03:21 Total Bilirubin 0.30 mg/dL (0.2-1.0) 02/10/22 03:21 AST 12 Units/L (15-37) L 02/11/22 04:00 ALT 15 Units/L (12-78) 02/11/22 04:00 Alkaline Phosphatase 87 Units/L (46-116) 02/11/22 04:00 Creatine Kinase 45 Units/L (26-192) 02/09/22 21:31 CK-MB (CK-2) 1.0 ng/mL (0-4.0) 02/09/22 21: CK/CKMB % Calc 2.2 % (<4) 02/09/22 21:31 Troponin I High Sens 6.7 ng/L (4.0-60.0) 02/09/22 21:31 Total Protein 5.5 g/dL (6.4-8.2) L 02/11/22 04:00 Albumin 2.6 g/dL (3.4-5.0) L 02/11/22 04:00 Globulin 2.9 g/dL (2.5-4.5) 02/11/22 04:00 Albumin/Globulin Ratio 0.9 Ratio (1.1-2.1) L 02/11/22 04:00 Ur Random Sodium 60 mmol/L (40-220) 02/10/22 11:30 SARS-CoV-2 (PCR) Negative (NEGATIVE) 02/09/22 09:46 Influenza Type A (PCR) Negative (NEGATIVE) 02/09/22 09:46 Influenza Type B (PCR) Negative (NEGATIVE) 02/09/22 09:46 RSV (PCR) Negative (NEGATIVE) 02/09/22 09:46 - Plan (1) Hyponatremia Status: Acute Plan: NORMAL SALINE AT 75 ML/HR, PROTONIX 40MG PO DAILY, VERAPAMIL 120MG PO DAILY, LISINOPRIL 10MG PO DAILY, NEURONTIN 200MG PO HS, FLONASE 1 SPRAY EACH NOSTRIL DAILY, LUL 180MG PO DAILY, LIPITOR 40MG PO HS, ECOTRIN 81MG PO DAILY, AND TYLENOL 650MG PO Q6H PRN. SERIAL CARDIAC ENZYMES AND EKGS (2) Chest pain, rule out acute myocardial infarction Status: Resolved (3) Compression fracture of T11 vertebra Status: Acute Qualifiers: Encounter type: initial encounter Qualified Code(s): S22.080A - Wedge compression fracture of T11-T12 vertebra, initial encounter for closed fracture (4) Hypertension Status: Chronic Qualifiers: Hypertension type: primary hypertension Qualified Code(s): I10 - Essential (primary) hypertension
[2022-02-11] MEDS: ALBUMIN HUMAN 25%- 100 ML 100 ML IV SCH (12:34)
[2022-02-11] MEDS: MILK OF MAGNESIA PO SCH (16:38)
[2022-02-11] MEDS: LIPITOR TAB 40 MG PO SCH (21:00)
[2022-02-11] MEDS: NEURONTIN CAP 100 MG PO SCH (21:00)
[2022-02-11] MEDS: TYLENOL 325 MG TAB PO PRN (22:28)
[2022-02-12 05:03] LABS: ALANINE AMINOTRANSFERASE 16 Units/L (12-78); ALBUMIN 3.1 g/dL (3.4-5.0); ALKALINE PHOSPHATASE 80 Units/L (46-116); ASPARTATE AMINO TRANSFERASE 19 Units/L (15-37); BASOPHILS # (AUTO) 0.1 X10^3/uL (0.0-0.1); BASOPHILS % (AUTO) 1.2 % (0.2-1.0); BLOOD UREA NITROGEN 11 mg/dL (7-18); CALCIUM 8.7 mg/dL (8.5-10.1); CHLORIDE 99 mmol/L (98-107); COR CA(FOR HYPOALB) 9.4 mg/dL (8.5-10.1); CREATININE 0.67 mg/dL (0.55-1.02); EOSINOPHILS # (AUTO) 0.1 x10^3/uL (0.0-0.2); EOSINOPHILS % (AUTO) 0.8 % (0.9-2.9); LYMPHOCYTES # (AUTO) 1.6 X10^3/uL (1.3-2.9); LYMPHOCYTES % (AUTO) 16.1 % (21.0-51.0); MEAN CORPUSCULAR HEMOGLOBIN 26.6 pg (27.0-34.0); MEAN CORPUSCULAR HGB CONC 34.4 g/dL (33.0-35.0); MEAN CORPUSCULAR VOLUME 77.5 fL (80.0-100.0); MEAN PLATELET VOLUME 7.5 fL (7.4-11.0); MONOCYTES # (AUTO) 0.8 x10^3/uL (0.3-0.8); MONOCYTES % (AUTO) 7.9 % (0.0-13.0); NEUTROPHILS # (AUTO) 7.4 x10^3/uL (2.2-4.8); RED BLOOD COUNT 4.13 X10^6/uL (3.5-5.4); RED CELL DISTRIBUTION WIDTH 14.5 % (11.6-16.5); SODIUM 130 mmol/L (136-145); TOTAL PROTEIN 5.3 g/dL (6.4-8.2); eGFR NON BLACK RACES > 60 (>60)
[2022-02-12 05:48] LABS: PLATELET MORPHOLOGY COMMENT NORMAL (NORMAL)
[2022-02-12] MEDS ORDERED: ALLEGRA ONE (07:08)
[2022-02-12] MEDS: ALLEGRA PO SCH (09:02)
[2022-02-12] MEDS: PROTONIX TAB 40 MG PO SCH (09:04)
[2022-02-12] MEDS: ZESTRIL TAB 10 MG PO SCH (09:04)
[2022-02-12] MEDS: ASPIRIN EC 81 MG PO SCH (09:05)
[2022-02-12] MEDS: ALBUMIN HUMAN 25%- 100 ML 100 ML IV SCH (09:06)
[2022-02-12] MEDS: MILK OF MAGNESIA PO SCH (09:06)
[2022-02-12] MEDS: FLONASE NASAL SPRAY ENOSTRIL SCH (09:07)
[2022-02-12] MEDS: CALAN SR 120 MG PO SCH (09:08)
--- NOTE | 2022-02-12 11:56 | PCM.PROG ---
Progress Note - Progress Note for Day of Date of Exam: 02/12/22 - Subjective Subjective: IS CURRENTLY INPATIENT STATUS FOR TREATMENT OF HYPONATREMIA. TODAY, SHE IS ALERT AND ORIENTED, LYING IN BED ON MORNING ROUNDS. SHE DENIES CHEST PAIN OR NAUSEA THIS MORNING. SHE DOES ADMIT TO GENERALIZED WEAKNESS, HEADACHE, AND DIZZINESS. SHE ALSO REPORTS MILD MIDDLE AND LOWER BACK PAIN. ON EXAMINATION, HEART IS REGULAR IN RATE AND RHYTHM. BILATERAL LUNGS CLEAR TO AUSCULATION. ABDOMEN IS ROUND, SOFT, AND NON-TENDER WITH NORMAL BOWEL SOUNDS NOTED IN ALL QUADRANTS. HER VITALS THIS MORNING ARE: 98.5-65-18-95%-183/79. LABS WERE OBTAINED. ABNORMAL LAB VALUES INCLUDE THE FOLLOWING: HGB 11.0, HCT 32.0, SODIUM 130. ALL OTHER LABS ARE WITHIN NORMAL LIMITS. WE OBTAINED A LIVER ULTRASOUND YESTERDAY DUE TO SUSPECTED LESIONS. RESULTS ARE PENDING. SHE IS CURRENTLY RECEIVING NORMAL SALINE AT 75 ML/HR, ALBUMIN 25% IV DAILY, PROTONIX 40MG PO DAILY, VERAPAMIL 120MG PO DAILY, LISINOPRIL 10MG PO DAILY, NEURONTIN 200MG PO HS, FLONASE 1 SPRAY EACH NOSTRIL DAILY, LUL 180MG PO DAILY, LIPITOR 40MG PO HS, ECOTRIN 81MG PO DAILY, AND TYLENOL 650MG PO Q6H PRN. DUE TO DIZZINESS AND PERSISTENT HEADACHE, WE WILL OBTAIN A BRAIN CT WITHOUT CONTRAST TODAY. OTHERWISE, WE PLAN TO FOLLOW-UP WITH AM LABS AND CONTINUE TO MONITOR. TIME SPENT ON CLINICAL ASSESSMENT, REVIEWING LABS AND IMAGING, DECISION MAKING, AND DOCUMENTATION GREATER THAN 45 MINUTES. - Past Medical Family Social History Past Med/Fam/Surg Hx: No changes since H&P Allergies: Allergies No Known Drug Allergies Allergy (Verified 05/19/19 13:36) - Review of Systems ROS: No change since H&P - Vital Signs and I&O's Vital Signs: Temperature 98.1 F Pulse Rate [Left Radial] 70 Pulse Rate 61 Respiratory Rate 18 Blood Pressure [Right Arm] 162/70 Blood Pressure 149/68 O2 Sat by Pulse Oximetry 98 Intake and Output: Intake & Output 02/09/22 02/10/22 02/11/22 02/12/22 11:59 11:59 11:59 11:59 Intake Total 1847 / 1847 3259 / 3259 2670 / 2670 Balance 184 / 1847 3259 / 3259 2670 / 2670 - Physical Exam Oriented: Normal Eyes: Normal Ear: Normal Nose: Normal Throat: Normal Respiratory: Normal Cardiovascular: Normal : Normal Auscultation: Bowel Sounds: Normal Tenderness: Normal Skin: Normal Musculoskeletal: Normal Psychiatric: Normal Mood Description: Calm Affect: Normal Speech Pattern: Clear, Appropriate - Laboratory and Diagnostics Result Diagrams: 02/12/22 03:44 02/12/22 03:44 Labs: Laboratory WBC 10.0 X10^3/uL (3.6-10.0) 02/12/22 03:44 RBC 4.13 X10^6/uL (3.5-5.4) 02/12/22 03:44 Hgb 11.0 g/dL (12.0-16.0) L 02/12/22 03:44 Hct 32.0 % (36.0-47.0) L 02/12/22 03:44 MCV 77.5 fL (80.0-100.0) L 02/12/22 03:44 MCH 26.6 pg (27.0-34.0) L 02/12/22 03:44 MCHC 34.4 g/dL (33.0-35.0) 02/12/22 03:44 RDW 14.5 % (11.6-16.5) 02/12/22 03:44 Plt Count 302 X10^3/uL (150.0-450.0) 02/12/22 03:44 Plt Count Comment Adequate (ADEQUATE) 02/12/22 03:44 MPV 7.5 fL (7.4-11.0) 02/12/22 03:44 Neut % (Auto) 74.0 % (42.0-75.0) 02/12/22 03:44 Lymph % (Auto) 16.1 % (21.0-51.0) L 02/12/22 03:44 [place] % (Auto) 7.9 % (0.0-13.0) 02/12/22 03:44 Eos % (Auto) 0.8 % (0.9-2.9) L 02/12/22 03:44 Baso % (Auto) 1.2 % (0.2-1.0) H 02/12/22 03:44 Neut # (Auto) 7.4 x10^3/uL (2.2-4.8) H 02/12/22 03:44 Lymph # (Auto) 1.6 X10^3/uL (1.3-2.9) 02/12/22 03:44 [place] # (Auto) 0.8 x10^3/uL (0.3-0.8) 02/12/22 03:44 Eos # (Auto) 0.1 x10^3/uL (0.0-0.2) 02/12/22 03:44 Baso # (Auto) 0.1 X10^3/uL (0.0-0.1) 02/12/22 03:44 Absolute Nucleated RBC 0.0 /100WBC 02/12/22 03:44 Plt Morphology Comment Normal (NORMAL) 02/12/22 03:44 RBC Morphology Abnormal (NORMAL) A 02/12/22 03:44 Acanthocytes (Spur) Present 02/12/22 03:44 Sodium 130 mmol/L (136-145) L 02/12/22 03:44 Corrected Sodium TNP 02/12/22 03:44 Potassium 5.1 mmol/L (3.5-5.1) 02/12/22 03:44 Chloride 99 mmol/L (98-107) 02/12/22 03:44 Carbon Dioxide 26.0 mmol/L (21-32) 02/12/22 03:44 BUN 11 mg/dL (7-18) 02/12/22 03:44 Creatinine 0.67 mg/dL (0.55-1.02) 02/12/22 03:44 Est GFR (MDRD) Af Amer > 60 (>60) 02/12/22 03:44 Est GFR (MDRD) Non-Af > 60 (>60) 02/12/22 03:44 Glucose 95 mg/dL (65-99) 02/12/22 03:44 Calculated Osmolality 270 mOsm/kg (285-295) L 02/10/22 03:21 Calcium 8.7 mg/dL (8.5-10.1) 02/12/22 03:44 Corrected Calcium 9.4 mg/dL (8.5-10.1) 02/12/22 03:44 Magnesium 1.8 mg/dL (1.7-2.9) 02/10/22 03:21 Total Bilirubin 0.40 mg/dL (0.2-1.0) 02/12/22 03:44 AST 19 Units/L (15-37) 02/12/22 03:44 ALT 16 Units/L (12-78) 02/12/22 03:44 Alkaline Phosphatase 80 Units/L (46-116) 02/12/22 03:44 Creatine Kinase 45 Units/L (26-192) 02/09/22 21:31 CK-MB (CK-2) 1.0 ng/mL (0-4.0) 02/09/22 21:31 CK/CKMB % Calc 2.2 % (<4) 02/09/22 21:31 Troponin I High Sens 6.7 ng/L (4.0-60.0) 02/09/22 21:31 Total Protein 5.3 g/dL (6.4-8.2) L 02/12/22 03:44 Albumin 3.1 g/dL (3.4-5.0) L 02/12/22 03:44 Globulin 2.2 g/dL (2.5-4.5) L 02/12/22 03:44 Albumin/Globulin Ratio 1.4 Ratio (1.1-2.1) 02/12/22 03:44 Ur Random Sodium 60 mmol/L (40-220) 02/10/22 11:30 SARS-CoV-2 (PCR) Negative (NEGATIVE) 02/09/22 09:46 Influenza Type A (PCR) Negative (NEGATIVE) 02/09/22 09:46 Influenza Type B (PCR) Negative (NEGATIVE) 02/09/22 09:46 RSV (PCR) Negative (NEGATIVE) 02/09/22 09:46 - Plan (1) Hyponatremia Status: Acute Plan: NORMAL SALINE AT 75 ML/HR, PROTONIX 40MG PO DAILY, VERAPAMIL 120MG PO GIANNI Y, LISINOPRIL 10MG PO DAILY, NEURONTIN 200MG PO HS, FLONASE 1 SPRAY EACH NOSTRIL DAILY, LUL 180MG PO DAILY, LIPITOR 40MG PO HS, ECOTRIN 81MG PO DAILY, AND TYLENOL 650MG PO Q6H PRN. SERIAL CARDIAC ENZYMES AND EKGS (2) Chest pain, rule out acute myocardial infarction Status: Resolved (3) Compression fracture of T11 vertebra Status: Acute Qualifiers: Encounter type: initial encounter Qualified Code(s): S22.080A - Wedge compression fracture of T11-T12 vertebra, initial encounter for closed fracture (4) Dizziness Status: Acute (5) Headache Status: Acute Qualifiers: Headache type: unspecified Headache chronicity pattern: acute headache Intractability: not intractable Qualified Code(s): R51.9 - Headache, unspecified (6) Hypertension Status: Chronic Qualifiers: Hypertension type: primary hypertension Qualified Code(s): I10 - Essential (primary) hypertension
[2022-02-12] MEDS: NS 1,000 ML IV 1,000 ML IV SCH ×2 (13:12→15:18)
--- NOTE | 2022-02-12 13:54 | RAD ---
HISTORYConstipationSTUDYPortable KUBCOMPARISONNoneFINDINGSIntestinal gas pattern is normal without obstruction or ileus. There is slight fecal dilatation of the colon. No organ enlargement, mass or ascites demonstrated.IMPRESSIONFindings suggest constipation; correlate with history. Normal otherwise.Electronically signed by: JUDD LEON (February 12, 2022 13:53:36)
--- NOTE | 2022-02-12 14:15 | CT ---
HISTORYDIZZINESS, HEADACHE, WEAKNESSSTUDYCT brain without IV contrastCOMPARISONNoneTECHNIQUEMultiple axial images of the brain were obtained without IV contrast. Dose reduction techniques including Automated Exposure Control (AEC) and adjustment of mA and kV were utilized.FINDINGSVisualized portions of the paranasal sinuses and mastoid air cells are clear. No calvarial fracture is seen. No acute intracranial hemorrhage or mass effect is seen. Prominent diffuse volume loss is seen in the brain with compensatory enlargement of the ventricular system. Probable mild chronic small vessel ischemic changes are seen in the white matter. No evidence of acute CVA.IMPRESSIONNo acute abnormality is seen.Electronically signed by: Radhames Huber (February 12, 2022 14:13:35)
[2022-02-12] MEDS ORDERED: FLEET ENEMA ADULT PR PRN (14:19)
[2022-02-12] MEDS: TYLENOL 325 MG TAB PO PRN (14:37)
[2022-02-12] MEDS: LIPITOR TAB 40 MG PO SCH (20:23)
[2022-02-12] MEDS: NEURONTIN CAP 100 MG PO SCH (20:23)
[2022-02-13] MEDS: NS 1,000 ML IV 1,000 ML IV SCH ×2 (01:05→18:08)
[2022-02-13 05:00] LABS: BASOPHILS # (AUTO) 0.1 X10^3/uL (0.0-0.1); BASOPHILS % (AUTO) 0.6 % (0.2-1.0); EOSINOPHILS # (AUTO) 0.1 x10^3/uL (0.0-0.2); EOSINOPHILS % (AUTO) 0.8 % (0.9-2.9); HEMATOCRIT 29.8 % (36.0-47.0); HEMOGLOBIN 10.2 g/dL (12.0-16.0); LYMPHOCYTES # (AUTO) 1.6 X10^3/uL (1.3-2.9); LYMPHOCYTES % (AUTO) 16.7 % (21.0-51.0); MEAN CORPUSCULAR HEMOGLOBIN 26.6 pg (27.0-34.0); MEAN CORPUSCULAR HGB CONC 34.2 g/dL (33.0-35.0); MEAN PLATELET VOLUME 7.2 fL (7.4-11.0); MONOCYTES # (AUTO) 0.6 x10^3/uL (0.3-0.8); MONOCYTES % (AUTO) 6.4 % (0.0-13.0); NEUTROPHILS # (AUTO) 7.2 x10^3/uL (2.2-4.8); NEUTROPHILS % (AUTO) 75.5 % (42.0-75.0); RED BLOOD COUNT 3.82 X10^6/uL (3.5-5.4); RED CELL DISTRIBUTION WIDTH 14.5 % (11.6-16.5); WHITE BLOOD COUNT 9.6 X10^3/uL (3.6-10.0)
[2022-02-13 05:35] LABS: ALANINE AMINOTRANSFERASE 16 Units/L (12-78); ALBUMIN 3.2 g/dL (3.4-5.0); ALKALINE PHOSPHATASE 70 Units/L (46-116); ASPARTATE AMINO TRANSFERASE 14 Units/L (15-37); BLOOD UREA NITROGEN 10 mg/dL (7-18); CALCIUM 8.6 mg/dL (8.5-10.1); CARBON DIOXIDE 24.4 mmol/L (21-32); CHLORIDE 103 mmol/L (98-107); COR CA(FOR HYPOALB) 9.2 mg/dL (8.5-10.1); SODIUM 135 mmol/L (136-145); TOTAL PROTEIN 5.5 g/dL (6.4-8.2); eGFR NON BLACK RACES > 60 (>60)
[2022-02-13] MEDS ORDERED: ALLEGRA ONE (08:02)
[2022-02-13] MEDS: MILK OF MAGNESIA PO SCH (08:40)
[2022-02-13] MEDS: PROTONIX TAB 40 MG PO SCH (08:40)
[2022-02-13] MEDS: CALAN SR 120 MG PO SCH (08:40)
[2022-02-13] MEDS: ALLEGRA PO SCH (08:40)
[2022-02-13] MEDS: FLONASE NASAL SPRAY ENOSTRIL SCH (08:40)
[2022-02-13] MEDS: ASPIRIN EC 81 MG PO SCH (08:41)
[2022-02-13] MEDS: ALBUMIN HUMAN 25%- 100 ML 100 ML IV SCH (08:41)
[2022-02-13] MEDS: ZESTRIL TAB 10 MG PO SCH (08:42)
--- NOTE | 2022-02-13 09:04 | US ---
HISTORYLiver lesionSTUDYLIVER ultrasound, two-dimensional ultrasound is performed of the liver with image documentation.COMPARISONChest CT 02/10/2022FINDINGSVisualized portions of the pancreas appear normal. Liver is normal in size. The suspected cysts seen on CT are not identified. Hepatopetal portal venous flow is seen on Doppler ultrasound.No evidence of cholelithiasis or cholecystitis is seen. Common bile duct is normal in size.IMPRESSIONNo abnormalities are seen.Recommend follow-up contrast enhanced CT of the abdomen in 6 months time to assure stability of the probable benign cysts in the liver.Electronically signed by: Radhames Huber (February 13, 2022 09:04:14)
[2022-02-13] MEDS: THERMOTABS PO SCH (11:27)
[2022-02-13] MEDS: TYLENOL 325 MG TAB PO PRN ×2 (12:28→21:46)
[2022-02-13] MEDS: LIPITOR TAB 40 MG PO SCH (21:45)
[2022-02-13] MEDS: NEURONTIN CAP 100 MG PO SCH (21:46)
[2022-02-14] MEDS: NS 1,000 ML IV 1,000 ML IV SCH ×3 (05:36→20:11)
[2022-02-14 06:14] LABS: ALANINE AMINOTRANSFERASE 35 Units/L (12-78); ALBUMIN 3.2 g/dL (3.4-5.0); ALKALINE PHOSPHATASE 69 Units/L (46-116); ASPARTATE AMINO TRANSFERASE 22 Units/L (15-37); BLOOD UREA NITROGEN 8 mg/dL (7-18); CALCIUM 8.8 mg/dL (8.5-10.1); CARBON DIOXIDE 27.1 mmol/L (21-32); CHLORIDE 103 mmol/L (98-107); COR CA(FOR HYPOALB) 9.4 mg/dL (8.5-10.1); CREATININE 0.73 mg/dL (0.55-1.02); SODIUM 136 mmol/L (136-145); TOTAL PROTEIN 5.4 g/dL (6.4-8.2); eGFR NON BLACK RACES > 60 (>60)
[2022-02-14 06:21] LABS: BASOPHILS % (AUTO) 0.6 % (0.2-1.0); EOSINOPHILS # (AUTO) 0.1 x10^3/uL (0.0-0.2); EOSINOPHILS % (AUTO) 0.9 % (0.9-2.9); HEMATOCRIT 28.6 % (36.0-47.0); HEMOGLOBIN 9.7 g/dL (12.0-16.0); LYMPHOCYTES # (AUTO) 1.4 X10^3/uL (1.3-2.9); LYMPHOCYTES % (AUTO) 17.8 % (21.0-51.0); MEAN CORPUSCULAR HEMOGLOBIN 26.7 pg (27.0-34.0); MEAN CORPUSCULAR VOLUME 78.6 fL (80.0-100.0); MEAN PLATELET VOLUME 7.1 fL (7.4-11.0); MONOCYTES # (AUTO) 0.5 x10^3/uL (0.3-0.8); MONOCYTES % (AUTO) 6.9 % (0.0-13.0); NEUTROPHILS # (AUTO) 5.6 x10^3/uL (2.2-4.8); NEUTROPHILS % (AUTO) 73.8 % (42.0-75.0); RED BLOOD COUNT 3.64 X10^6/uL (3.5-5.4); RED CELL DISTRIBUTION WIDTH 14.8 % (11.6-16.5); WHITE BLOOD COUNT 7.6 X10^3/uL (3.6-10.0)
[2022-02-14] MEDS ORDERED: ALLEGRA ONE (08:27)
[2022-02-14] MEDS: THERMOTABS PO SCH (09:27)
[2022-02-14] MEDS: FLONASE NASAL SPRAY ENOSTRIL SCH (09:27)
[2022-02-14] MEDS: PROTONIX TAB 40 MG PO SCH (09:27)
[2022-02-14] MEDS: ZESTRIL TAB 10 MG PO SCH (09:28)
[2022-02-14] MEDS: ANTIVERT TAB 25 MG PO SCH ×2 (09:28→20:11)
[2022-02-14] MEDS: CALAN SR 120 MG PO SCH (09:28)
[2022-02-14] MEDS: MILK OF MAGNESIA PO SCH (09:28)
[2022-02-14] MEDS: ASPIRIN EC 81 MG PO SCH (09:28)
[2022-02-14] MEDS: ALBUMIN HUMAN 25%- 100 ML 100 ML IV SCH (09:29)
[2022-02-14] MEDS: ALLEGRA PO SCH (09:29)
[2022-02-14] MEDS: LIPITOR TAB 40 MG PO SCH (20:12)
[2022-02-14] MEDS: TYLENOL 325 MG TAB PO PRN (20:12)
[2022-02-14] MEDS: NEURONTIN CAP 100 MG PO SCH (20:12)
[2022-02-15 05:09] LABS: BASOPHILS # (AUTO) 0.1 X10^3/uL (0.0-0.1); BASOPHILS % (AUTO) 0.6 % (0.2-1.0); EOSINOPHILS # (AUTO) 0.1 x10^3/uL (0.0-0.2); EOSINOPHILS % (AUTO) 0.8 % (0.9-2.9); HEMATOCRIT 31.2 % (36.0-47.0); HEMOGLOBIN 10.7 g/dL (12.0-16.0); LYMPHOCYTES # (AUTO) 1.4 X10^3/uL (1.3-2.9); LYMPHOCYTES % (AUTO) 15.1 % (21.0-51.0); MEAN CORPUSCULAR HGB CONC 34.3 g/dL (33.0-35.0); MEAN CORPUSCULAR VOLUME 78.5 fL (80.0-100.0); MEAN PLATELET VOLUME 7.1 fL (7.4-11.0); MONOCYTES # (AUTO) 0.6 x10^3/uL (0.3-0.8); MONOCYTES % (AUTO) 6.9 % (0.0-13.0); NEUTROPHILS # (AUTO) 7.1 x10^3/uL (2.2-4.8); NEUTROPHILS % (AUTO) 76.6 % (42.0-75.0); RED BLOOD COUNT 3.97 X10^6/uL (3.5-5.4); RED CELL DISTRIBUTION WIDTH 14.7 % (11.6-16.5); WHITE BLOOD COUNT 9.2 X10^3/uL (3.6-10.0)
[2022-02-15 05:21] LABS: ALANINE AMINOTRANSFERASE 40 Units/L (12-78); ALKALINE PHOSPHATASE 77 Units/L (46-116); ASPARTATE AMINO TRANSFERASE 20 Units/L (15-37); BLOOD UREA NITROGEN 9 mg/dL (7-18); CALCIUM 9.3 mg/dL (8.5-10.1); CARBON DIOXIDE 27.2 mmol/L (21-32); CHLORIDE 102 mmol/L (98-107); CREATININE 0.78 mg/dL (0.55-1.02); SODIUM 136 mmol/L (136-145); TOTAL PROTEIN 6.5 g/dL (6.4-8.2); eGFR NON BLACK RACES > 60 (>60)
[2022-02-15] MEDS ORDERED: ALLEGRA ONE (09:05)
[2022-02-15] MEDS: ALBUMIN HUMAN 25%- 100 ML 100 ML IV SCH (09:09)
[2022-02-15] MEDS: ASPIRIN EC 81 MG PO SCH (09:10)
[2022-02-15] MEDS: ANTIVERT TAB 25 MG PO SCH ×2 (09:10→20:15)
[2022-02-15] MEDS: ALLEGRA PO SCH (09:10)
[2022-02-15] MEDS: PROTONIX TAB 40 MG PO SCH (09:11)
[2022-02-15] MEDS: FLONASE NASAL SPRAY ENOSTRIL SCH (09:11)
[2022-02-15] MEDS: CALAN SR 120 MG PO SCH (09:11)
[2022-02-15] MEDS: THERMOTABS PO SCH (09:11)
[2022-02-15] MEDS: MILK OF MAGNESIA PO SCH (09:11)
[2022-02-15] MEDS: ZESTRIL TAB 10 MG PO SCH (09:11)
[2022-02-15] MEDS: COLACE CAP 100 MG PO SCH ×2 (11:19→20:15)
[2022-02-15] MEDS: NS 1,000 ML IV 1,000 ML IV SCH ×2 (11:47→22:59)
[2022-02-15] MEDS: TYLENOL 325 MG TAB PO PRN ×2 (12:43→20:15)
[2022-02-15] MEDS: LIPITOR TAB 40 MG PO SCH (20:15)
[2022-02-15] MEDS: NEURONTIN CAP 100 MG PO SCH (20:15)
[2022-02-16 05:19] LABS: BASOPHILS # (AUTO) 0.1 X10^3/uL (0.0-0.1); BASOPHILS % (AUTO) 0.5 % (0.2-1.0); EOSINOPHILS # (AUTO) 0.1 x10^3/uL (0.0-0.2); EOSINOPHILS % (AUTO) 0.8 % (0.9-2.9); HEMATOCRIT 30.3 % (36.0-47.0); HEMOGLOBIN 10.2 g/dL (12.0-16.0); LYMPHOCYTES # (AUTO) 1.2 X10^3/uL (1.3-2.9); LYMPHOCYTES % (AUTO) 11.1 % (21.0-51.0); MEAN CORPUSCULAR HEMOGLOBIN 26.6 pg (27.0-34.0); MEAN CORPUSCULAR HGB CONC 33.6 g/dL (33.0-35.0); MEAN CORPUSCULAR VOLUME 79.2 fL (80.0-100.0); MEAN PLATELET VOLUME 7.3 fL (7.4-11.0); MONOCYTES # (AUTO) 0.9 x10^3/uL (0.3-0.8); MONOCYTES % (AUTO) 7.9 % (0.0-13.0); NEUTROPHILS # (AUTO) 8.9 x10^3/uL (2.2-4.8); NEUTROPHILS % (AUTO) 79.7 % (42.0-75.0); RED BLOOD COUNT 3.82 X10^6/uL (3.5-5.4); RED CELL DISTRIBUTION WIDTH 14.8 % (11.6-16.5); WHITE BLOOD COUNT 11.2 X10^3/uL (3.6-10.0)
[2022-02-16 05:35] LABS: ALANINE AMINOTRANSFERASE 39 Units/L (12-78); ALBUMIN 3.8 g/dL (3.4-5.0); ALKALINE PHOSPHATASE 73 Units/L (46-116); ASPARTATE AMINO TRANSFERASE 13 Units/L (15-37); BLOOD UREA NITROGEN 10 mg/dL (7-18); CALCIUM 9.1 mg/dL (8.5-10.1); CARBON DIOXIDE 27.9 mmol/L (21-32); CHLORIDE 102 mmol/L (98-107); CREATININE 0.76 mg/dL (0.55-1.02); SODIUM 136 mmol/L (136-145); TOTAL PROTEIN 6.1 g/dL (6.4-8.2); eGFR NON BLACK RACES > 60 (>60)
[2022-02-16] MEDS ORDERED: ALLEGRA ONE (07:15)
[2022-02-16 08:04] VITALS: BP 186/84
[2022-02-16] MEDS: MILK OF MAGNESIA PO SCH (08:41)
[2022-02-16] MEDS: CALAN SR 120 MG PO SCH (08:41)
[2022-02-16] MEDS: ALBUMIN HUMAN 25%- 100 ML 100 ML IV SCH (08:41)
[2022-02-16] MEDS: COLACE CAP 100 MG PO SCH (08:41)
[2022-02-16] MEDS: ANTIVERT TAB 25 MG PO SCH (08:42)
[2022-02-16] MEDS: ZESTRIL TAB 10 MG PO SCH (08:42)
[2022-02-16] MEDS: ALLEGRA PO SCH (08:42)
[2022-02-16] MEDS: ASPIRIN EC 81 MG PO SCH (08:42)
[2022-02-16] MEDS: FLONASE NASAL SPRAY ENOSTRIL SCH (08:43)
[2022-02-16] MEDS: PROTONIX TAB 40 MG PO SCH (08:44)
[2022-02-16] MEDS: THERMOTABS PO SCH (09:23)
== END 2022-02-16 11:40 | disposition home or self-care (01) | DRG 641 ==
LOC: ER 08:47 → MED/SURG 11:28
PROVIDERS: ADMIT Internal Medicine; ATTEND Internal Medicine
DX: R94.31 Abnormal electrocardiogram [ECG] [EKG]; I10 Essential (primary) hypertension; R51.9 Headache, unspecified; Z79.899 Other long term (current) drug therapy; Z20.822 Contact with and (suspected) exposure to COVID-19; R53.1 Weakness; E87.1 Hypo-osmolality and hyponatremia; K59.09 Other constipation; E78.2 Mixed hyperlipidemia; M80.88XA Other osteoporosis with current pathological fracture, vertebra(e), initial encounter for fracture; R42 Dizziness and giddiness; K76.89 Other specified diseases of liver; R07.89 Other chest pain